=== PATIENT | male | born 1980 | race Caucasian/White ===

== ENCOUNTER → 2016-12-19 | Outpatient (CLI) | payer OTHER ==
--- NOTE | 2016-12-19 16:59 | KCIC ---
PROCEDURE MR of the right shoulder HISTORY Injury 2 months ago. Pain and limited range of motion. TECHNIQUE Routine multiplanar sequences are obtained. COMPARISON None FINDINGS [id number] motion degradation Mild edema at the acromioclavicular joint. Bone marrow edema identified within the outer clavicle. Question subtle incomplete fracture line at the far outer clavicle just deep to the subchondral aspect. No acromioclavicular joint separation. No evidence of rotator cuff tear. No significant subdeltoid bursal fluid. No significant joint effusion. No evidence of labral tear. No acute articular cartilage defect. Biceps tendon is intact. No evidence of aggressive bone destruction. No acute muscle injury. IMPRESSION 1. Bone marrow edema at the outer clavicle, with questionable tiny fracture. Findings could indicate posttraumatic etiology, or stress injury from repeated micro trauma. 2. No other internal derangement is identified. Electronically signed by: Antolin Patricia MD (Dec 19, 2016 16:57:37)
== END | disposition home or self-care (01) ==
LOC: KCIC MRI 15:56
PROVIDERS: ATTEND Family Medicine
DX: M75.101 Unspecified rotator cuff tear or rupture of right shoulder, not specified as traumatic (principal)
CPT/HCPCS: 73221